=== PATIENT | male | born 1990 | race African-American/Black ===

== ENCOUNTER 2025-02-13 17:22 | Emergency (ER) | payer OTHER ==
[~2025-02-13] VITALS: Ht 190.5 cm; Wt 90.7 kg
[~2025-02-13 17:22] MED LIST: ALBU05 NEB; PROT40 PO; SUCR1TAB PO; TRAM50TA94 PO
[2025-02-13 17:24] VITALS: O2SAT 99
[2025-02-13 18:31] VITALS: BP 118/74; PULSE 68; RESP 18; TEMP 36.7; O2SAT 99
== END 2025-02-13 18:31 | disposition home or self-care (01) ==
LOC: ER 17:22
DX: T18.128A Food in esophagus causing other injury, initial encounter (principal); J45.909 Unspecified asthma, uncomplicated; Z79.899 Other long term (current) drug therapy; W44.F3XA Food entering into or through a natural orifice, initial encounter; Y93.89 Activity, other specified; Y92.89 Other specified places as the place of occurrence of the external cause; Y99.8 Other external cause status
CPT/HCPCS: 99281